=== PATIENT | female | born 1995 | race Caucasian/White ===

== ENCOUNTER → 2021-06-03 11:34 | Outpatient (BNVA) | payer SELFPAY | PROVIDERS: PCP Pediatrics | DX: Z02.1 Encounter for pre-employment examination (principal) ==

== ENCOUNTER → 2021-12-29 14:34 | Outpatient (BNVA) | payer SELFPAY | PROVIDERS: PCP Pediatrics | DX: Z02.0 Encounter for examination for admission to educational institution (principal) ==